=== PATIENT | male | born 1960 | race Two or more races ===

== ENCOUNTER 2022-02-27 19:29 | Emergency (ER) | payer BC ==
[~2022-02-27] VITALS: Ht 188 cm; Wt 108.9 kg
[2022-02-27] MEDS ORDERED: ALLOPURINOL100 MG PO (20:31)
== END 2022-02-27 22:30 | disposition home or self-care (01) ==
LOC: ER 19:29
DX: L03.116 Cellulitis of left lower limb (principal)